=== PATIENT | male | born 1955 | race Two or more races ===

== ENCOUNTER 2019-05-06 06:38 | Day surgery (SDC) | payer OTHER ==
--- NOTE | 2019-05-05 09:02 | Pre-Procedure Note/Attestation ---
Pre-Procedure Note/Attestation Complete Prior to Procedure Planned Procedure: right Procedure Narrative: cataract extraction with implant right eye Indications for Procedure Pre-Operative Diagnosis: cataract right eye Attestation I attest that I discussed the nature of the procedure; its benefits; risks and complications; and alternatives (and the risks and benefits of such alternatives ), prior to the procedure, with the patient (or the patient's legal business banking representative). I attest that, if there was a reasonable possibility of needing a blood transfusion, the patient (or the patient's legal business banking representative) was given the [facility] standardized written summary, pursuant to the [employer] [place] Blood Safety Act ([place] Health and Safety Code # 1645, as amended). I attest that I re-evaluated the patient just prior to the surgery and that there has been no change in the patient's H&P, except as documented below: Chele Parks MD May 05, 2019 09:02
[2019-05-06] VITALS (7 sets, daily range): BP systolic 112–134; BP diastolic 70–95
[~2019-05-06] VITALS: Ht 177.8 cm; Wt 74.8 kg
[~2019-05-06 06:38] MED LIST: IMITREX50 MG ORAL; KLONOPIN0.5 MG ORAL; LITHIUM CARBON150 MG ORAL; METOPROLOL SUCC50 MG ORAL; ZALEPLON10 MG ORAL; ZYPREXA10 MG ORAL
[2019-05-06] MEDS ORDERED: Akten 3.5% 1ml Btl ONE (07:13)
[2019-05-06] MEDS ORDERED: Tobradex Opth Susp 2.5ml ONE (07:13)
[2019-05-06] MEDS ORDERED: Phenylephrine 2.5% Op 2ml Soln ONE (07:13)
[2019-05-06] MEDS ORDERED: Tropicamide 1% Opth 15ml Soln ONE (07:13)
[2019-05-06] MEDS ORDERED: Diclofenac Sod 0.1% Op Soln ONE (07:14)
[2019-05-06] MEDS ORDERED: Vigamox Opth Soln 3ml ONE (07:14)
[2019-05-06] MEDS: Tropicamide 1% Opth 15ml Soln RIGHT EYE SCH ×3 (07:15→07:49)
[2019-05-06] MEDS: Phenylephrine 2.5% Op 2ml Soln RIGHT EYE SCH ×3 (07:15→07:49)
[2019-05-06] MEDS: Tobradex Opth Susp 2.5ml RIGHT EYE SCH ×3 (07:16→07:50)
[2019-05-06] MEDS: Vigamox Opth Soln 3ml RIGHT EYE SCH ×3 (07:16→07:49)
[2019-05-06] MEDS: Akten 3.5% 1ml Btl RIGHT EYE SCH ×3 (07:19→07:50)
[2019-05-06] MEDS: Diclofenac Sod 0.1% Op Soln RIGHT EYE SCH ×3 (07:19→07:50)
[2019-05-06] MEDS ORDERED: EPINEPHrine 1mg/1ml Amp ONE (07:25)
[2019-05-06] MEDS ORDERED: Carbachol 0.01% Op Soln 1.5ml vial ONE (07:26)
[2019-05-06] MEDS ORDERED: Lidocaine 1% MPF 10mg/ml 5ml ONE ×2 (07:26→08:26)
[2019-05-06] MEDS ORDERED: BSS 500ml btl ONE (07:26)
[2019-05-06] MEDS ORDERED: Dexamethasone 4mg/ml vial ONE (07:26)
[2019-05-06] MEDS ORDERED: acetaZOLAMIDE 500mg Inj ONE (07:26)
[2019-05-06] MEDS ORDERED: Sodium Hyaluronate 10 mg/ml 0.85ml ONE (07:27)
[2019-05-06] MEDS ORDERED: Povidone-Iodine 5% opth solution ONE (07:27)
[2019-05-06] MEDS ORDERED: BSS 15ml BTL ONE (07:27)
[2019-05-06] MEDS ORDERED: LR 1000ml 1,000 ML IVLG SCH (08:20)
--- NOTE | 2019-05-06 08:20 | Anethesia Preoperative Eval ---
Anesthesia Pre-op PMH/ROS General Date of Evaluation: May 06, 2019 Anesthesiologist: Jacobo ASA Score: ASA 2 Mallampati Score Class I : Soft palate, uvula, fauces, pillars visible Class II: Soft palate, uvula, fauces visible Class III: Soft palate, base of uvula visible Class IV: Only hard plate visible Mallampati Classification: Class II Surgeon: Charly Diagnosis: Right cataract Surgical Procedure: Right cataract extraction with IOL Anesthesia History: none Family History: no anesthesia problems Allergies: Coded Allergies: No Known Allergies (Unverified , 05/05/19) Medications: see eMAR Patient NPO?: Yes NPO Date: May 06, 2019 NPO Time: 00:00 Past Medical History Cardiovascular: Reports: HTN; Denies: CAD, VA, valve dz, arrhythmia, other Pulmonary: Denies: asthma, COPD, AIDA, other Gastrointestinal/Genitourinary: Denies: GERD, CRI, ESRD, other Neurologic/Psychiatric: Reports: other - Bipolar; Denies: dementia, CVA, depression/anxiety, TIA Endocrine: Denies: DM, hypothyroidism, steroids, other HEENT: Denies: cataract (L), cataract (R), glaucoma, SOLOMON (L), SOLOMON (R), other Hematology/Immune: Denies: anemia, DVT, bleeding disorder, other Musculoskeletal/Integumentary: Denies: OA, RA, DJD, DDD, edema, other PSxH Narrative: lap appy, right eye vitrectomy Anesthesia Pre-op Phys. Exam Physician Exam Last Vital Signs Date Time Temp Pulse Resp B/P (MAP) Pulse Ox O2 Delivery O2 Flow Rate FiO2 05/06/19 08:05 Room Air 05/06/19 07:47 97.7 52 18 115/80 98 Constitutional: NAD Cardiovascular: RRR Respiratory: CTA Airway Exam Mallampati Score: Class I MO: full ROM: full Teeth: intact Anesthesia Pre-op A/P Labs see chart Studies Pre-op Studies: EKG - sr Risk Assessment & Plan Assessment: ASA II Plan: MAC Status Change Before Surgery: No Pre-Antibiotics Drug: N/a Veronica Jolley MD May 06, 2019 08:20
[2019-05-06] MEDS ORDERED: fentaNYL 100 mcg/2 mL IV ONE (08:26)
[2019-05-06] MEDS ORDERED: DiphenhydrAMINE 50mg/ml Inj IVP PRN (08:30)
[2019-05-06] MEDS ORDERED: Midazolam 2mg/2ml Inj IVP PRN (08:30)
[2019-05-06] MEDS ORDERED: Sterile Water Irrig 1000ml IRRIG ONE (08:30)
[2019-05-06] MEDS ORDERED: LR 1000ml ONE (08:30)
[2019-05-06] MEDS ORDERED: LORazepam Inj 2mg/ml 1ml IV PRN (08:30)
[2019-05-06] MEDS ORDERED: NS Irrig 1000ml ONE (08:30)
--- NOTE | 2019-05-06 09:20 | Immediate Post-Op Evaluation ---
Immediate Post-Op Evalulation Immediate Post-Op Evalulation Procedure: Right cataract extraction with IOL Date of Evaluation: May 06, 2019 Time of Evaluation: 09:21 IV Fluids: 400 Blood Products: 0 Estimated Blood Loss: min Urinary Output: 0 Blood Pressure Systolic: 134 Blood Pressure Diastolic: 95 Pulse Rate: 55 Respiratory Rate: 16 O2 Sat by Pulse Oximetry: 100 Temperature (Fahrenheit): 98 Pain Score (1-10): 0 Nausea: No Vomiting: No Complications 0 Patient Status: awake, reacts, patent, none Hydration Status: adequate Drug: N/a Veronica Jolley MD May 06, 2019 09:20
--- NOTE | 2019-05-06 09:21 | 48 Hour Post Anesthesia Eval ---
Post Anesthesia Evaluation Procedure: Right cataract extraction with IOL Date of Evaluation: May 06, 2019 Airway: patent Nausea: No Vomiting: No Pain Intensity: 0 Hydration Status: adequate Cardiopulmonary Status: at baseline Mental Status/LOC: patient returned to baseline Post-Anesthesia Complications: 0 Follow-up care needed: ready to discharge Veronica Jolley MD May 06, 2019 09:21
--- NOTE | 2019-05-06 09:26 | Brief Operative Note ---
Immediate Post Operative Note Operative Note Pre-op Diagnosis: cataract right eye Procedure: phacoemulsification of cataract with implant right eye Post-op Diagnosis: same as pre-op Surgeon: chele rogel Beam Racker: none Anesthesiologist: carmen smith crna Anesthesia: MAC Specimen: none Complications: none Condition: stable Fluids: none Estimated Blood Loss: none Drains: none Implant(s) used?: Yes Chele Rogel MD May 06, 2019 09:26
--- NOTE | 2019-05-06 18:30 | Operative Note - Dictated ---
DATE OF OPERATION: 05/06/2019 NOTE: INCOMPLETE DICTATION SURGEON: Chele Parks M.D. ([facility]) AUTOMATION APPLICATION ENGINEER: None. ANESTHESIA: MAC/topical. ANESTHESIOLOGIST: Veronica Dickerson M.D. INDICATION FOR PROCEDURE: Poor vision right eye. DESCRIPTION OF FINDINGS: Dense nuclear sclerotic cataract, right eye, status post pars plana vitrectomy. DESCRIPTION OF PROCEDURE: The patient received a topical anesthetic block consisting of 4%. Chele Parks M.D. ([facility]) DR: SACHIN JOB#: [id number] CC: [email or web address]
--- NOTE | 2019-05-06 18:30 | Operative Note - Dictated ---
DATE OF OPERATION: 05/06/2019 PREOPERATIVE DIAGNOSIS: Cataract, right eye. POSTOPERATIVE DIAGNOSIS: Cataract, right eye. PROCEDURE: Phacoemulsification of cataract, right eye with placement of posterior chamber intraocular lens. SURGEON: Chele Parks M.D. SENIOR BOOKKEEPER: None. ANESTHESIA: MAC/topical. ANESTHESIOLOGIST: Alhaji Dickerson M.D. INDICATION FOR PROCEDURE: Poor vision, right eye. DESCRIPTION OF FINDINGS: Dense nuclear sclerotic cataract, right eye status post pars plana vitrectomy. DESCRIPTION OF PROCEDURE: The patient received a topical anesthetic block consisting of 3% Akten drops. The eye was then prepped and draped in the usual manner. A lid speculum was placed. An operating Zeiss microscope was positioned. The temporal corneal groove was made with the ingrid blade. A SuperSharp blade made a stab incision at the 12 o'clock position. A 0.1 mL of 1% nonpreserved intracameral lidocaine was injected. Healon was instilled into the anterior chamber and a 2.5/2.8 mm trapezoidal ingrid blade was used to complete the temporal corneal wound. A cystotome was used to create anterior capsular flap. Utrata forceps were used to complete the capsulorrhexis. BSS on a cannula was used to hydrodissect the nucleus. The lens nucleus was phacoemulsified in a phacofracture technique. Remaining cortical material was removed with the I/A and the posterior capsule was polished with the I/A on Cap vac. Healon was instilled in a capsular bag and anterior chamber and Darrian-Darrian preloaded posterior chamber intraocular lens, model PCB00, power of 8.0 diopter, serial number [id number] was placed into capsular bag. The I/A tip was used to remove the Healon and position the lens. The wound edge was hydrated with BSS and a blunt-tipped cannula. The wound was checked and found to be watertight. The lid speculum was removed and a drop of TobraDex and Vigamox was placed. A clear plastic shield was taped over the eye. The patient tolerated the procedure well and left the operating room in good condition. Chele Parks M.D. ([facility] [place]) DR: Ed JOB#: [id number] CC: [email or web address]
== END 2019-05-06 10:35 | disposition home or self-care (01) ==
LOC: SUR 06:38
DX: H25.11 Age-related nuclear cataract, right eye (principal); I10 Essential (primary) hypertension; F31.9 Bipolar disorder, unspecified; Z90.89 Acquired absence of other organs; F32.9 Major depressive disorder, single episode, unspecified; G47.00 Insomnia, unspecified
CPT/HCPCS: 66984; J0171; J1100; J2250; J3010; J7120; V2632; 94003; 94150